=== PATIENT | female | born 1970 | race Caucasian/White ===

== ENCOUNTER 2021-04-21 22:11 | Inpatient (IN) | payer MEDICARE, OTHER ==
[~2021-04-21] VITALS: Ht 165.1 cm; Wt 87.5 kg
[2021-04-21 22:30] VITALS: BP 117/44
[2021-04-21] MEDS ORDERED: LAMO100T17 PO (23:06)
[2021-04-21] MEDS ORDERED: LANS30CA56 PO (23:07)
[2021-04-21] MEDS ORDERED: LEVO100T9 PO (23:08)
[2021-04-21] MEDS ORDERED: CLON1TAB12 PO (23:09)
[2021-04-21] MEDS ORDERED: CLON0.5T4 PO (23:11)
[2021-04-21] MEDS ORDERED: LITH300T PO (23:12)
[2021-04-21] MEDS ORDERED: LITH300T3 PO (23:14)
[2021-04-21] MEDS ORDERED: ACETAMINOPHEN 325 MG TABLET PO PRN (23:30)
[2021-04-21] MEDS ORDERED: HOME MED MISCELLANEOUS XX SCH (23:30)
[2021-04-21] MEDS ORDERED: LORAZEPAM 1 MG TABLET PO PRN (23:30)
[2021-04-21] MEDS ORDERED: BLOOD SUGAR DIAGNOSTIC 1 EACH STRIP IN ONE (23:45)
[2021-04-22 00:13] VITALS: BP 117/44
--- NOTE | 2021-04-22 00:15 | NUR ---
GPS/SAUSAGE CUTTER ADMISSION NOTES: RECEIVED 51 YEAR OLD FEMALE ON VOLUNTARY. PT. ORIENTED TO UNIT POLICIES, PROTOCOLS AND PROCEDURES. PT. BELONGINGS LOGGED AND LOCKED IN CABINET. SAFETY ENVIRONMENT OBSERVED AT ALL TIMES. CALL MALAVE WITHIN REACH AT ALL TIMES. NO DISTRESS OR AGITATION NOTED AT THIS TIME. MEDICAL AND PSYCH MADE AWARE OF PT. ADMISSION.
[2021-04-22] MEDS: ZOLPIDEM TARTRATE 5 MG TABLET PO PRN ×2 (00:47→21:42)
[2021-04-22] MEDS: MAG HYDROX/AL HYDROX/SIMETH 30 ML UDC PO PRN (01:12)
--- NOTE | 2021-04-22 01:12 | NUR ---
GPS RN NOTE, PATIENT HAS A COMPLAINT OF INDIGESTION AND IS REQUESTING MAALOX AT THIS TIME. PATIENT VITAL ARE STABLE. GAVE MAALOX 30MG DOSE Q4HR PRN ORDERED. WILL CONTINUE TO MONITOR THIS PATIENT.
[2021-04-22 07:39] LABS: BASOPHILS % (AUTO) 0.1 % (0.0-2.0); EOSINOPHILS % (AUTO) 0.1 % (0.0-6.0); HEMATOCRIT 38 % (33-45); HEMOGLOBIN 12.4 g/dL (11.5-14.8); LYMPHOCYTES % (AUTO) 34.3 % (20.0-44.0); MEAN CORPUSCULAR HGB CONC 33 g/dl (31.0-36.0); MEAN CORPUSCULAR VOLUME 91 fL (82-100); MONOCYTES # (AUTO) 0.5 K/uL (0.1-1.30); MONOCYTES % (AUTO) 7.7 % (2.0-12.0); NEUTROPHILS # (AUTO) 3.4 K/uL (1.8-8.9); NEUTROPHILS % (AUTO) 57.8 % (43.0-81.0); PLATELET COUNT (AUTO) 275 K/uL (150-450); WHITE BLOOD COUNT (AUTO) 5.8 K/uL (4.3-11.0)
[2021-04-22 07:57] LABS: CALCIUM, SERUM 9.5 mg/dL (8.5-10.1); CREATININE 0.7 mg/dL (0.6-1.3); POTASSIUM 4.1 mmol/L (3.5-5.1)
[2021-04-22] MEDS: LEVOTHYROXINE SODIUM 100 MCG TABLET PO SCH (07:59)
[2021-04-22 08:00] VITALS: BP 123/74
[2021-04-22] MEDS: FAMOTIDINE (20 MG) 20 MG TABLET PO SCH (08:09)
[2021-04-22] MEDS ORDERED: clonazePAM 0.5 MG TABLET PO PRN (11:00)
[2021-04-22] MEDS: ARIPIPRAZOLE 5 MG TABLET PO SCH (11:43)
[2021-04-22] MEDS: LamoTRIgine 100 MG TABLET PO SCH ×2 (11:43→21:24)
[2021-04-22 12:40] LABS: THYROID STIMULATING HORMONE 3.168 uIU/mL (0.358-3.74)
--- NOTE | 2021-04-22 12:45 | NUR ---
Social Work Note/Substance Abuse Intervention: Patient was provided with a brief substance abuse intervention and referred to [facility] ([phone]), [facility] ([phone]), and [facility] ([phone]) for drinking occasionally.
--- NOTE | 2021-04-22 12:56 | NUR ---
YOLIE Initial Discharge Plan: Patient currently resides at home alone located at [address] [place] [address] and would want to go back home upon discharge. YOLIE will work with the MD and treatment team to coordinate discharge.
[2021-04-22] MEDS: DIVALPROEX SODIUM 250 MG TABLET.DR PO SCH ×2 (13:38→17:00)
--- NOTE | 2021-04-22 14:25 | NUR ---
YOLIE Family Contact: SW contacted pt's adopted brother Rex ([phone]) and gathered collateral. Rex stated that pt was living in and was diagnosed with Bipolar discharged and was seeing Dr. Mosher in [facility]. However, brother reported that pt moved to a year ago and isolated herself from family and was impulsive. Brother stated she was buying expensive items and was unable to pay for it. Brother reported that pt is having issues with finances. Brother reported that pt found a new psychiatrist on yelp and that psychiatrist took her off her medications and she decompensated. SW discussed treatment and discharge plan.
[2021-04-22 16:00] VITALS: BP 111/65
[2021-04-22 16:50] LABS: BILIRUBIN,URINE NEGATIVE (NEGATIVE); COLOR,URINE YELLOW (YELLOW); LEUKOCYTE ESTERASE ,URINE SMALL (NEGATIVE); NITRITE, URINE POSITIVE (NEGATIVE); PH,URINE 6.5 (5.0-8.0); PROTEIN,URINE NEGATIVE (NEGATIVE); UGLUCOSE NEGATIVE (NEGATIVE); UROBILINOGEN,URINE 0.2 EU/dL (0.2)
[2021-04-22] MEDS ORDERED: LamoTRIgine 100 MG TABLET PO SCH (18:00)
--- NOTE | 2021-04-22 18:30 | NUR ---
RN NOTE: TERRELL ORTIZ NOTIFIED OF UA RESULTS
[2021-04-22 18:42] LABS: BACTERIA,URINE 4+ /HPF (None Seen); RBC,URINE 0-2 /HPF (0-2); SQUAMOUS EPITHELIAL CELL,UR Few /HPF (None Seen); WBC,URINE 21-50 /HPF (0-3)
[2021-04-22 20:00] VITALS: BP 150/69
--- NOTE | 2021-04-22 21:43 | NUR ---
GPS RN NOTES: Patient requested for sleep med. Ambien 5mg given PO at 2142. Will continue to monitor.
[2021-04-23] MEDS: LEVOTHYROXINE SODIUM 100 MCG TABLET PO SCH (06:03)
[2021-04-23 08:00] VITALS: BP 128/69
[2021-04-23] MEDS: LamoTRIgine 100 MG TABLET PO SCH ×2 (08:14→21:38)
[2021-04-23] MEDS: DIVALPROEX SODIUM 250 MG TABLET.DR PO SCH ×3 (08:14→17:18)
[2021-04-23] MEDS: ARIPIPRAZOLE 5 MG TABLET PO SCH (08:14)
[2021-04-23] MEDS: FAMOTIDINE (20 MG) 20 MG TABLET PO SCH (08:14)
[2021-04-23] MEDS: CEPHALEXIN MONOHYDRATE 500 MG CAPSULE PO SCH ×3 (14:34→23:21)
[2021-04-23 16:00] VITALS: BP 136/92
[2021-04-23 20:00] VITALS: BP 126/72
[2021-04-23] MEDS: ZOLPIDEM TARTRATE 5 MG TABLET PO PRN (21:41)
[2021-04-24] MEDS: LEVOTHYROXINE SODIUM 100 MCG TABLET PO SCH (06:14)
[2021-04-24] MEDS: CEPHALEXIN MONOHYDRATE 500 MG CAPSULE PO SCH ×4 (06:14→23:37)
--- NOTE | 2021-04-24 07:52 | NUR ---
PT'S BLACK OVER THE EAR HEADPHONES PLACED IN LOCKER ALONG WITH HER OTHER BELONGINGS.
[2021-04-24] MEDS: ARIPIPRAZOLE 5 MG TABLET PO SCH (08:36)
[2021-04-24] MEDS: DIVALPROEX SODIUM 250 MG TABLET.DR PO SCH ×3 (08:36→17:03)
[2021-04-24] MEDS: LamoTRIgine 100 MG TABLET PO SCH ×2 (08:36→21:01)
[2021-04-24] MEDS: FAMOTIDINE (20 MG) 20 MG TABLET PO SCH (08:36)
[2021-04-24] MEDS ORDERED: ARIPIPRAZOLE 5 MG TABLET PO ONE (09:30)
--- NOTE | 2021-04-24 09:39 | NUR ---
YOLIE Individual Therapy: SW met with patient multiple times to discuss her presenting problem. Patient appears anxious about being at the hospital. YOLIE educated pt that she is at a mental health unit and the hospital has to take precaution. SW actively listened and provided emotional support.
[2021-04-24 10:18] VITALS: BP 137/72
--- NOTE | 2021-04-24 18:13 | NUR ---
PT ANXIOUS WITH FREQUENT REQUESTS. PT REQUESTED RAPID COVID TEST FELT SCRATCHY THROAT. TEST DONE. RESULTED NEGATIVE. PT AMBULATORY. ABLE TO MAKE NEEDS KNOWN. MEDICATION COMPLIANT. NO BEHAVIORAL ISSUES T/O SHIFT.
[2021-04-24 20:35] VITALS: BP 125/85
--- NOTE | 2021-04-24 21:53 | NUR ---
RN NOTE: ANXIETY PATIENT VERBALIZED FEELING ANXIOUS & MANIC, PATIENT WANTED TO TAKE MEDICINE TO CALM HER DOWN. PRN KLONOPIN 0.5 MG PO ADMINISTERED. WILL CONTINUE TO MONITOR.
[2021-04-24] MEDS: MAGNESIUM HYDROXIDE 30 ML UDC PO PRN (21:59)
--- NOTE | 2021-04-24 22:01 | NUR ---
RN NOTE: C/O CONSTIPATION PATIENT C/O CONSTIPATION & STATED SHE HAD LAST BM ON 04/21/21 & REQUESTED TO TAKE MEDICINE. PRN MILK OF MAGNESIA PRN ADMINISTERED ORDERED.
[2021-04-24] MEDS: ZOLPIDEM TARTRATE 5 MG TABLET PO PRN (23:41)
--- NOTE | 2021-04-24 23:42 | NUR ---
RN NOTE: INSOMNIA PATIENT VERBALIZED INABILITY TO SLEEP & WANTED TO TAKE SLEEPING MEDICINE RIGHT NOW. PRN AMBARIEN 5 NG PO ADMINISTERED. WILL CONTINUE TO MONITOR.
[2021-04-25] MEDS: CEPHALEXIN MONOHYDRATE 500 MG CAPSULE PO SCH ×3 (06:29→18:01)
[2021-04-25] MEDS: LEVOTHYROXINE SODIUM 100 MCG TABLET PO SCH (06:34)
[2021-04-25 08:00] VITALS: BP 108/64
[2021-04-25] MEDS: FAMOTIDINE (20 MG) 20 MG TABLET PO SCH (08:31)
[2021-04-25] MEDS: DIVALPROEX SODIUM 250 MG TABLET.DR PO SCH ×3 (08:32→18:01)
[2021-04-25] MEDS: ARIPIPRAZOLE 5 MG TABLET PO SCH (08:32)
[2021-04-25] MEDS: LamoTRIgine 100 MG TABLET PO SCH ×2 (08:32→21:11)
--- NOTE | 2021-04-25 08:34 | NUR ---
GPS/RN PT WAS PROVIDED RIGHTS FOR INDIVIDUALS IN MENTAL HEALTH FACILITIES HANDBOOK BY HER REQUEST.
[2021-04-25] MEDS: MAG HYDROX/AL HYDROX/SIMETH 30 ML UDC PO PRN ×2 (11:10→22:19)
[2021-04-25 16:00] VITALS: BP 117/74
[2021-04-25 19:49] VITALS: BP 139/86
[2021-04-25 19:58] VITALS: BP 139/86
[2021-04-25] MEDS: PANTOPRAZOLE 40 MG TABLET.DR PO SCH (21:11)
[2021-04-25] MEDS ORDERED: TRAZODONE 50 MG TABLET PO SCH (22:00)
[2021-04-25] MEDS: TRAZODONE 50 MG TABLET PO SCH (22:06)
[2021-04-26] MEDS: CEPHALEXIN MONOHYDRATE 500 MG CAPSULE PO SCH ×5 (00:02→23:39)
[2021-04-26] MEDS: LEVOTHYROXINE SODIUM 100 MCG TABLET PO SCH (06:20)
[2021-04-26] MEDS: DIVALPROEX SODIUM 250 MG TABLET.DR PO SCH ×3 (07:48→21:18)
[2021-04-26] MEDS: ARIPIPRAZOLE 5 MG TABLET PO SCH (07:48)
[2021-04-26] MEDS: PANTOPRAZOLE 40 MG TABLET.DR PO SCH ×2 (07:48→21:20)
[2021-04-26] MEDS: LamoTRIgine 100 MG TABLET PO SCH ×2 (07:48→21:18)
[2021-04-26 08:00] VITALS: BP 106/62
[2021-04-26 16:00] VITALS: BP 130/93
[2021-04-26 19:43] VITALS: BP 132/58
[2021-04-26] MEDS: TRAZODONE 50 MG TABLET PO SCH (21:19)
[2021-04-27] MEDS: ZOLPIDEM TARTRATE 5 MG TABLET PO PRN (01:06)
--- NOTE | 2021-04-27 01:06 | NUR ---
Pt woke up and c/o insomnia. Least restrictive measures ineffective. Ambien 5 mg 1 tab po prn given as ordered. Will continue to monitor.
--- NOTE | 2021-04-27 02:13 | NUR ---
Post 1 hr Ambien effective. Pt asleep in bed easy to arouse. Frequent visual check done for safety. Will continue to monitor.
[2021-04-27] MEDS: LEVOTHYROXINE SODIUM 100 MCG TABLET PO SCH (06:26)
[2021-04-27] MEDS: CEPHALEXIN MONOHYDRATE 500 MG CAPSULE PO SCH ×3 (06:26→18:01)
[2021-04-27] MEDS: MAG HYDROX/AL HYDROX/SIMETH 30 ML UDC PO PRN (07:04)
--- NOTE | 2021-04-27 07:05 | NUR ---
Pt c/o indigestion. Maalox po prn given as ordered. Will continue to monitor. Will endorse to next shift
[2021-04-27 08:00] VITALS: BP 114/75
[2021-04-27] MEDS: ARIPIPRAZOLE 5 MG TABLET PO SCH (08:28)
[2021-04-27] MEDS: LamoTRIgine 100 MG TABLET PO SCH ×2 (08:28→21:41)
[2021-04-27] MEDS: PANTOPRAZOLE 40 MG TABLET.DR PO SCH ×2 (08:28→21:41)
[2021-04-27] MEDS: DIVALPROEX SODIUM 250 MG TABLET.DR PO SCH ×2 (08:29→21:41)
--- NOTE | 2021-04-27 13:43 | NUR ---
YOLIE Individual Therapy: SW met with patient to discuss patient's presenting problem. Patient appears manic and anxious. Patient appears tearful and is frustrated with being at the hospital. SW explained patient's treatment plan. Pt was not understanding and was wanting her cellphone to talk to her friends. SW provided patient activities to do gratitude journal and goals for the week.
--- NOTE | 2021-04-27 14:31 | NUR ---
YOLIE Note: YOLIE assisted pt to pay her bills through her cellphone. SW was present while pt had her cellphone and pt did not end up paying her bill on the phone or transfer money to her brother. Pt was fixated on texting her friends on the phone or responding to her psychiatrist on the phone. Pt began to cry and threw a tantrum. YOLIE and ISHAN Piña helped and educated pt that she cannot text her friends on the phone. YOLIE helped pt gather her friends number and she will be allowed to use the unit phone. YOLIE helped provide her psychiatrist number from phone. YOLIE and ISHAN Piña stated she can give psychiatrist number to the unit and he can call.
[2021-04-27 16:00] VITALS: BP 131/63
[2021-04-27 20:00] VITALS: BP 140/84
[2021-04-27] MEDS: TRAZODONE 50 MG TABLET PO SCH (21:41)
[2021-04-28] MEDS: CEPHALEXIN MONOHYDRATE 500 MG CAPSULE PO SCH ×3 (01:00→11:53)
[2021-04-28] MEDS: MAG HYDROX/AL HYDROX/SIMETH 30 ML UDC PO PRN (01:25)
--- NOTE | 2021-04-28 01:30 | NUR ---
GPS RN NOTES: PATIENT C/O INDIGESTION. MAALOX 30ML/1CUP GIVEN PO @ 0125. WILL CONTINUE TO MONITOR.
[2021-04-28] MEDS: LEVOTHYROXINE SODIUM 100 MCG TABLET PO SCH (06:10)
[2021-04-28 08:00] VITALS: BP 141/68
[2021-04-28] MEDS: LamoTRIgine 100 MG TABLET PO SCH ×2 (08:46→20:44)
[2021-04-28] MEDS: PANTOPRAZOLE 40 MG TABLET.DR PO SCH ×2 (08:46→20:44)
[2021-04-28] MEDS: DIVALPROEX SODIUM 250 MG TABLET.DR PO SCH ×2 (08:46→20:44)
[2021-04-28] MEDS: ARIPIPRAZOLE 5 MG TABLET PO SCH (08:46)
[2021-04-28] MEDS: LORAZEPAM 1 MG TABLET PO PRN ×2 (11:52→23:09)
--- NOTE | 2021-04-28 11:52 | NUR ---
PT APPEARS ANXIOUS AND COMPLAINS OF FEELING ANXIOUS. ATIVAN 1MG GIVEN. WILL CONTINUE TO MONITOR.
--- NOTE | 2021-04-28 12:45 | NUR ---
YOLIE Note: Patient throwing a tantrum and crying and wanting to be discharged. YOLIE and ISHAN Piña explained that pt will be discharged AMA. Pt wants to be discharged AMA.
--- NOTE | 2021-04-28 12:47 | NUR ---
Discharge Note: Patient is leaving AMA. Patient will be discharged back home located at [address] [facility] [facility] [address], [place] [address]; ([phone]). Patient will provide her own transportation. Patients adopted brother Rex ([phone]) is aware and agreeable. Patient appears to be alert and oriented x4. Patient denies suicidal or homicidal ideation. Patient denies visual/auditory hallucinations. Patient will follow up with (Esthetician/Spa Coordinator) Dr. Chester Vergara ([phone]) located at [facility] [address] [place] [address] [address], [place], [place] [address] and (psychiatrist) Dr. Bejarano located at [address] [address]; ([phone]). Addendum: 04/29/21 at 1028 by YOLIE GIL Discharge canceled. Dr. Baptiste notified pt was manic and verbally/physically aggressive. Crisis team was called.
--- NOTE | 2021-04-28 13:00 | NUR ---
PER DR LEIGH, PT'S PHARMACY [facility] [address] [place] [address] [phone] CONTA[address]ED. PRESCRIPTION FOR DEPAKOTE DR 500MG Q12 PO X 2 WEEKS, LAMICTAL 100MG Q12 PO X2 WEEKS, DESYREL 50MG POHS X 2 WEEKS, ABILIFY 15MG PO DAILY X 2 WEEKS, PLACED WITH PHARMACIST MARCELINA.
--- NOTE | 2021-04-28 14:33 | NUR ---
YOLIE Family Contact: YOLIE contacted pt's adopted brother Rex ([phone]) and notified that patient wanted to leave AMA. Brother stated that patient has a hard time with accepting her mental illness and letting go of her cellphone. YOLIE explained patient's status and her follow ups for treatment.
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
[2021-04-28 16:00] VITALS: BP 145/69
--- NOTE | 2021-04-28 17:40 | NUR ---
PT PLACED ON A 5150 HOLD BY CRISIS ELECTRICAL ELECTRONICS TECHNICIAN JUVENAL HAILE BEGINNING ON 04/28/2021 @ 1617 PER HOLD: PRESENTING DANGER TO OTHERS AND GRAVELY DISABLED. DR LUGO NOTIFIED. DR LEIGH CONTACTED, MESSAGE LEFT. APPLE WATCH RETRIEVED FROM PATIENT, LISTED ON BELONGINGS LIST AND TAKEN TO SAFE BY DRESSMAKER GARMENT FITTER. PT IS CALM AND REDIRECTABLE AT THIS TIME. REMAINS MED COMPLIANT AND COMPLIANT WITH CARE. WILL CONTINUE TO MONITOR.
[2021-04-28 20:00] VITALS: BP 131/67
[2021-04-28] MEDS: TRAZODONE 50 MG TABLET PO SCH (21:05)
--- NOTE | 2021-04-28 23:12 | NUR ---
GPS RN NOTES: PATIENT IS ANXIOUS, RESTLESS AND GETTING AGITATED. ATIVAN 1MG GIVEN PO AT 2309. WILL CONTINUE TO MONITOR.
[2021-04-29] MEDS: LEVOTHYROXINE SODIUM 100 MCG TABLET PO SCH (06:47)
[2021-04-29 08:00] VITALS: BP 107/59
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
[2021-04-29] MEDS ORDERED: OLANZAPINE 10 MG VIAL IM STA (08:38)
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
[2021-04-29] MEDS ORDERED: ARIPIPRAZOLE 5 MG TABLET PO SCH (09:00)
--- NOTE | 2021-04-29 09:24 | NUR ---
YOLIE Family Contact: SW contacted pt's adopted brother Rex ([phone]) and notified of pt's 3020 hold and he was agreeable with this.
[2021-04-29] MEDS: LamoTRIgine 100 MG TABLET PO SCH ×2 (09:39→21:48)
[2021-04-29] MEDS: DIVALPROEX SODIUM 250 MG TABLET.DR PO SCH (09:39)
[2021-04-29] MEDS: PANTOPRAZOLE 40 MG TABLET.DR PO SCH ×2 (09:40→21:48)
--- NOTE | 2021-04-29 11:27 | NUR ---
RN-CO: PT REMAINS AWAKE, WALKING IN AND OUT FROM HER ROOM. DENIED PAIN AND DISCOMFORTS.
[2021-04-29] MEDS: LORAZEPAM 1 MG TABLET PO PRN ×2 (12:12→20:17)
[2021-04-29] MEDS: LITHIUM CARBONATE (300 MG CAP) 300 MG CAPSULE PO SCH ×2 (12:12→21:49)
[2021-04-29 16:00] VITALS: BP 136/78
[2021-04-29 20:00] VITALS: BP 112/73
--- NOTE | 2021-04-29 20:18 | NUR ---
Pt c/o anxiety. Restless and pacing around in room and hallway. Least restrictive measures ineffective. Ativan 1 mg po prn given as ordered. Will continue to monitor.
[2021-04-29] MEDS: OLANZAPINE 5 MG TABLET PO SCH (21:47)
[2021-04-29] MEDS: TRAZODONE 50 MG TABLET PO SCH (21:48)
[2021-04-30] MEDS: LEVOTHYROXINE SODIUM 100 MCG TABLET PO SCH (06:35)
[2021-04-30 08:00] VITALS: BP 108/66
[2021-04-30] MEDS: LITHIUM CARBONATE (300 MG CAP) 300 MG CAPSULE PO SCH ×2 (08:26→21:27)
[2021-04-30] MEDS: PANTOPRAZOLE 40 MG TABLET.DR PO SCH ×2 (08:26→21:27)
[2021-04-30] MEDS: LamoTRIgine 100 MG TABLET PO SCH ×2 (08:26→21:27)
[2021-04-30] MEDS: OLANZAPINE 5 MG TABLET PO SCH ×2 (08:27→21:27)
--- NOTE | 2021-04-30 12:26 | NUR ---
Pt. is barricading the door on her room, agitated, screaming and slamming the door when staff opened the door. Dr. Baptiste notified and ordered Zyprexa 10 mg IM.
[2021-04-30] MEDS ORDERED: OLANZAPINE 10 MG VIAL IM ONE (12:30)
[2021-04-30 16:00] VITALS: BP 130/89
[2021-04-30 20:00] VITALS: BP 118/71
[2021-04-30] MEDS: TRAZODONE 50 MG TABLET PO SCH (21:27)
[2021-05-01 08:00] VITALS: BP 113/76
[2021-05-01] MEDS: LEVOTHYROXINE SODIUM 100 MCG TABLET PO SCH (08:09)
[2021-05-01] MEDS: PANTOPRAZOLE 40 MG TABLET.DR PO SCH ×2 (08:10→21:08)
[2021-05-01] MEDS: LITHIUM CARBONATE (300 MG CAP) 300 MG CAPSULE PO SCH ×2 (08:10→21:08)
[2021-05-01] MEDS: OLANZAPINE 5 MG TABLET PO SCH ×2 (08:11→17:06)
[2021-05-01] MEDS: LamoTRIgine 100 MG TABLET PO SCH ×2 (08:12→21:08)
--- NOTE | 2021-05-01 15:42 | NUR ---
YOLIE Family Contact: SW spoke with pt's adopted brother Rex ([phone]) who stated that he transferred money to pt's landlord for her rent.
--- NOTE | 2021-05-01 15:44 | NUR ---
YOLIE Note: YOLIE notified pt that her brother Rex has made the transfer to pay for her rent.
[2021-05-01 16:00] VITALS: BP 147/82
[2021-05-01 20:00] VITALS: BP 146/91
[2021-05-01 21:00] VITALS: BP 129/78
[2021-05-01] MEDS: TRAZODONE 50 MG TABLET PO SCH (21:08)
[2021-05-01] MEDS ORDERED: OLANZAPINE 5 MG TABLET PO SCH (22:00)
[2021-05-01] MEDS: LORAZEPAM 1 MG TABLET PO PRN (23:58)
--- NOTE | 2021-05-02 | NUR ---
RN NOTES: ANXIETY PATIENT C/O FEELING ANXIOUS & MANIC,PARANOID PATIENT WANTED TO TAKE MEDICINE TO CALM HER DOWN. PRN ATIVAN 1 MG PO ADMINISTERED.ATIVAN1 MG PO PRN GIVEN PER PT. REQUEST WILL CONTINUE TO MONITOR.
[2021-05-02] MEDS: LEVOTHYROXINE SODIUM 100 MCG TABLET PO SCH (07:06)
[2021-05-02 08:00] VITALS: BP 130/78
[2021-05-02] MEDS: OLANZAPINE 5 MG TABLET PO SCH ×2 (09:00→18:02)
[2021-05-02] MEDS: LITHIUM CARBONATE (300 MG CAP) 300 MG CAPSULE PO SCH ×2 (09:00→21:48)
[2021-05-02] MEDS: PANTOPRAZOLE 40 MG TABLET.DR PO SCH ×2 (09:00→21:47)
[2021-05-02] MEDS: LamoTRIgine 100 MG TABLET PO SCH ×2 (09:00→21:48)
[2021-05-02] MEDS ORDERED: HALOPERIDOL LACTATE INJ 5 MG/ML VIAL IM ONE (09:30)
[2021-05-02] MEDS ORDERED: diphenhydrAMINE HCL 50 MG/ML VIAL IM PRN (10:00)
[2021-05-02] MEDS ORDERED: LORAZEPAM INJ 2 MG/ML VIAL IM PRN (10:00)
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
[2021-05-02 16:00] VITALS: BP 103/70
--- NOTE | 2021-05-02 18:42 | NUR ---
resting comfortably in rm.
--- NOTE | 2021-05-02 19:30 | NUR ---
GPS RN NOTE, RECEIVED PATIENT AWAKE AND IN BED, NO S/S OR COMPLAINTS OF PAIN AT THIS TIME. PATIENT IS DISPLAYING NO S/S OF APPARENT DISTRESS AT THIS TIME. PATIENT BREATHING IS UNLABORED WITH EQUAL RISE AND FALL OF THE CHEST. PATIENT IS ALERT AND ORIENTED X 3 ON ROOM AIR WITH A SPO2 97%. PATIENT IS COMPLIANT WITH MEDICATIONS, ANXIOUS AT TIMES, AND UNCOOPERATIVE. PATIENT DENIES SUICIDAL AND HOMICIDAL IDEATIONS AT THIS TIME. PATIENT ASSISTED WITH TURNING AND REPOSITIONING Q2HR AND PRN FOR COMFORT AND CIRCULATION. PATIENT HAS NO NEEDS AT THIS TIME. PATIENT EDUCATED ON THE USE OF THE CALL MALAVE. PATIENT BED SIDE RAILS UP X 2 FOR SAFETY. PATIENT BED IS LOCKED, LOW, WITH BED ALARM ON. WILL CONTINUE TO MONITOR THIS PATIENT Q15 MINUTES WITH THE HELP OF STAFF TO MAINTAIN SAFETY.
[2021-05-02 20:12] VITALS: BP 124/72
[2021-05-02] MEDS ORDERED: OLANZAPINE 5 MG TABLET PO SCH (22:00)
[2021-05-03 08:00] VITALS: BP 117/52
[2021-05-03] MEDS: LEVOTHYROXINE SODIUM 100 MCG TABLET PO SCH (08:07)
[2021-05-03] MEDS: LITHIUM CARBONATE (300 MG CAP) 300 MG CAPSULE PO SCH ×2 (08:07→21:17)
[2021-05-03] MEDS: LORAZEPAM 1 MG TABLET PO PRN ×2 (08:07→16:53)
--- NOTE | 2021-05-03 08:07 | NUR ---
RN-CO: ATIVAN GIVEN FOR RESTLESSNESS.
[2021-05-03] MEDS: PANTOPRAZOLE 40 MG TABLET.DR PO SCH ×2 (08:10→21:16)
[2021-05-03] MEDS: OLANZAPINE 5 MG TABLET PO SCH ×3 (08:11→21:19)
[2021-05-03] MEDS: LamoTRIgine 100 MG TABLET PO SCH ×2 (08:42→21:16)
[2021-05-03 16:00] VITALS: BP 112/72
--- NOTE | 2021-05-03 19:54 | NUR ---
Patient currently resting in bed. Rise and fall of chest visualized. No signs of distress. Will continue to monitor.
[2021-05-03 20:00] VITALS: BP 136/76
--- NOTE | 2021-05-03 23:21 | NUR ---
patient reports having hallucination that morning nurse was at bedside telling her that she had slept for days straight.
[2021-05-03] MEDS: ZOLPIDEM TARTRATE 5 MG TABLET PO PRN (23:30)
[2021-05-04 06:57] LABS: BASOPHILS % (AUTO) 0.1 % (0.0-2.0); EOSINOPHILS % (AUTO) 0.2 % (0.0-6.0); HEMATOCRIT 38 % (33-45); HEMOGLOBIN 12.4 g/dL (11.5-14.8); LYMPHOCYTES # (AUTO) 1.5 K/uL (0.8-4.8); LYMPHOCYTES % (AUTO) 34.7 % (20.0-44.0); MEAN CORPUSCULAR HGB CONC 33 g/dl (31.0-36.0); MEAN CORPUSCULAR VOLUME 91 fL (82-100); MONOCYTES # (AUTO) 0.4 K/uL (0.1-1.30); MONOCYTES % (AUTO) 9.1 % (2.0-12.0); NEUTROPHILS # (AUTO) 2.5 K/uL (1.8-8.9); NEUTROPHILS % (AUTO) 55.9 % (43.0-81.0); PLATELET COUNT (AUTO) 213 K/uL (150-450); RED BLOOD CELL COUNT(AUTO) 4.15 MIL/uL (4.0-5.2); WHITE BLOOD COUNT (AUTO) 4.5 K/uL (4.3-11.0)
[2021-05-04] MEDS: LEVOTHYROXINE SODIUM 100 MCG TABLET PO SCH (06:57)
[2021-05-04 07:43] LABS: ALBUMIN 3.3 g/dL (3.4-5.0); BILIRUBIN,TOTAL 0.2 mg/dL (0.2-1.0); CALCIUM, SERUM 9.5 mg/dL (8.5-10.1); CREATININE 0.9 mg/dL (0.6-1.3); POTASSIUM 4.1 mmol/L (3.5-5.1); TOTAL PROTEIN, SERUM 6.6 g/dL (6.4-8.2)
[2021-05-04 08:00] VITALS: BP 103/64
[2021-05-04] MEDS: PANTOPRAZOLE 40 MG TABLET.DR PO SCH ×2 (08:18→21:48)
[2021-05-04] MEDS: LITHIUM CARBONATE (300 MG CAP) 300 MG CAPSULE PO SCH ×2 (08:18→21:48)
[2021-05-04] MEDS: LamoTRIgine 100 MG TABLET PO SCH ×2 (08:18→21:48)
[2021-05-04] MEDS: OLANZAPINE 5 MG TABLET PO SCH ×3 (08:18→22:20)
[2021-05-04] MEDS: LORAZEPAM 1 MG TABLET PO PRN (14:52)
--- NOTE | 2021-05-04 14:53 | NUR ---
RN note: ATIVAN GIVEN FOR RESTLESSNESS.
[2021-05-04 16:00] VITALS: BP 126/69
[2021-05-04 20:28] VITALS: BP 110/70
[2021-05-05] MEDS: LEVOTHYROXINE SODIUM 100 MCG TABLET PO SCH (07:08)
[2021-05-05 08:00] VITALS: BP 115/77
[2021-05-05] MEDS: OLANZAPINE 5 MG TABLET PO SCH ×3 (08:39→21:19)
[2021-05-05] MEDS: LamoTRIgine 100 MG TABLET PO SCH ×2 (08:39→20:51)
[2021-05-05] MEDS: LITHIUM CARBONATE (300 MG CAP) 300 MG CAPSULE PO SCH ×2 (08:39→20:51)
[2021-05-05] MEDS: PANTOPRAZOLE 40 MG TABLET.DR PO SCH ×2 (08:39→20:51)
--- NOTE | 2021-05-05 09:00 | NUR ---
RN NOTE- RECEIVED PATIENT IN THE ROOM RESTING IN BED NO S/S DISTRESS NOTED PATIENT DENIES SI/HI, COMPLIANT WITH MEDICATIONS A/O X3 AMBULATORY SELF CARE WILL CONTINUE MONITORING FOR SAFETY AND BEHAVIOR Q 15 MIN.
[2021-05-05 16:00] VITALS: BP 113/90
[2021-05-05] MEDS: LORAZEPAM 1 MG TABLET PO PRN (19:35)
--- NOTE | 2021-05-05 19:37 | NUR ---
RN NOTE: ANXIETY PATIENT VERBALIZED FEELING VERY ANXIOUS AND RESTLESS AND REQUESTED TO TAKE MEDICINE. PRN ATIVAN 1 MG PO ADMINISTERED.
[2021-05-05 20:00] VITALS: BP 125/70
--- NOTE | 2021-05-05 22:35 | NUR ---
RN NOTE: PAIN PATIENT C/O LOWER BACK PAIN 10/01 AND REQUESTED TO TAKE TYLENOL. PRN TYLENOL 650 MG PO ADMINISTERED.
[2021-05-06] MEDS: LEVOTHYROXINE SODIUM 100 MCG TABLET PO SCH (07:50)
[2021-05-06 08:00] VITALS: BP 127/72
[2021-05-06] MEDS: PANTOPRAZOLE 40 MG TABLET.DR PO SCH ×2 (08:20→21:43)
[2021-05-06] MEDS: OLANZAPINE 5 MG TABLET PO SCH ×3 (08:20→21:43)
[2021-05-06] MEDS: LamoTRIgine 100 MG TABLET PO SCH ×2 (08:20→21:43)
[2021-05-06] MEDS: LITHIUM CARBONATE (300 MG CAP) 300 MG CAPSULE PO SCH ×2 (08:20→21:43)
[2021-05-06] MEDS: MAGNESIUM HYDROXIDE 30 ML UDC PO PRN (08:57)
[2021-05-06] MEDS: DOCUSATE SODIUM 100 MG CAPSULE PO SCH ×2 (11:50→16:35)
[2021-05-06] MEDS: POLYETHYLENE GLYCOL 3350 17 GM POWD.PACK PO SCH ×2 (11:50→21:43)
--- NOTE | 2021-05-06 15:03 | NUR ---
Court Hearing: Patient's court hearing for 3080 was today and it was upheld for GD.
[2021-05-06 16:00] VITALS: BP 111/69
[2021-05-06 20:00] VITALS: BP 132/78
[2021-05-06] MEDS: ZOLPIDEM TARTRATE 5 MG TABLET PO PRN (21:45)
[2021-05-07] MEDS: LORAZEPAM 1 MG TABLET PO PRN ×2 (00:25→19:52)
[2021-05-07 08:00] VITALS: BP 108/68
[2021-05-07] MEDS: LamoTRIgine 100 MG TABLET PO SCH ×2 (08:02→21:06)
[2021-05-07] MEDS: LITHIUM CARBONATE (300 MG CAP) 300 MG CAPSULE PO SCH ×2 (08:03→21:06)
[2021-05-07] MEDS: DOCUSATE SODIUM 100 MG CAPSULE PO SCH ×2 (08:03→17:12)
[2021-05-07] MEDS: PANTOPRAZOLE 40 MG TABLET.DR PO SCH ×2 (08:03→21:06)
[2021-05-07] MEDS: LEVOTHYROXINE SODIUM 100 MCG TABLET PO SCH (08:03)
[2021-05-07] MEDS: OLANZAPINE 5 MG TABLET PO SCH ×2 (08:04→21:06)
--- NOTE | 2021-05-07 13:06 | NUR ---
YOLIE Coordination of Care: YOLIE spoke with doctor Roshan who stated that he has seen patient once for screening and stated she is not the appropriate fit but will screen patient second time. He stated patient would have to call to make the appointment for the screening ([phone]).
[2021-05-07 16:00] VITALS: BP 114/74
--- NOTE | 2021-05-07 19:54 | NUR ---
GPS-RN NOTES: PATIENT IS ANXIOUS AND RESTLESS. PRN ATIVAN 1MG PO GIVEN ORDERED. WILL CONTINUE TO MONITOR PATIENT'S SAFETY.
[2021-05-07 20:00] VITALS: BP 137/66
[2021-05-07] MEDS: POLYETHYLENE GLYCOL 3350 17 GM POWD.PACK PO SCH (21:07)
[2021-05-07] MEDS: ZOLPIDEM TARTRATE 5 MG TABLET PO PRN (22:19)
--- NOTE | 2021-05-07 22:20 | NUR ---
GPS-RN NOTES: INSOMNIA PATIENT C/O INABILITY TO SLEEP. PRN AMBIEN 5MG PO ORDERED. WILL CONTINUE TO MONITOR.
--- NOTE | 2021-05-08 08:00 | NUR ---
Dr. Baptiste gave an order to D/C hold and D/C home and to follow up with psych and medical doctors. Dr. Baptiste provided a prescriptions for the pt. upon discharge.
--- NOTE | 2021-05-08 08:13 | NUR ---
SW Discharge Note: Patient will be discharged back home located at [address] [facility] [address], [place] [address]; ([phone]). Please arrange taxi transportation to [facility] [address] [place] [address] at 9AM. Patient will be provided with [email or web address] Ticket (RESERVATION NUMBER) back to [facility] at 10:40AM and lands 12:33PM.Patients adopted brother Rex ([phone]) is aware and agreeable. Patient appears to be alert and oriented x4. Patient denies suicidal or homicidal ideation. Patient denies visual/auditory hallucinations. Patient will follow up with (Slot Machine Mechanic) Dr. Chester Vergara ([phone]) located at [facility] [address] [place] [address] [address], [place], [place] [address] and (psychiatrist) Dr. Bejarano located at [address] [place] [id number]; ([phone]). Patient would have to call doctor Bejarano on his cellphone ([phone]) to coordinate a screening intake. Patient presents with euthymic mood and congruent affect.
[2021-05-08] MEDS: LEVOTHYROXINE SODIUM 100 MCG TABLET PO SCH (08:24)
[2021-05-08] MEDS: PANTOPRAZOLE 40 MG TABLET.DR PO SCH (08:24)
[2021-05-08] MEDS: DOCUSATE SODIUM 100 MG CAPSULE PO SCH (08:24)
[2021-05-08] MEDS: OLANZAPINE 5 MG TABLET PO SCH (08:24)
[2021-05-08] MEDS: LamoTRIgine 100 MG TABLET PO SCH (08:24)
[2021-05-08] MEDS: LITHIUM CARBONATE (300 MG CAP) 300 MG CAPSULE PO SCH (08:24)
--- NOTE | 2021-05-08 08:58 | NUR ---
GPS RN NOTE: PATIENT DISCHARGE HOME TO [place] VIA TAXI TO [facility] PT PROVIDED WITH TICKET BACK TO [place]. KAYLEE Addendum: 05/08/21 at 0906 by NAIF RODRIGUEZ RN PATIENT IN STABLE CONDITION , NO S/S DISTRESS NOTED, SELF CARE, VSS, PATIENT DENIES SI./HI AVH. AMBULATORY ,SEEN BY PSYCHIATRIST THIS MORNING. EXIT CARE DONE PRINTED ,SIGN , AND GIVEN TO PATIENT . EXPLAIN MEDICATION MGMT,PRESCRIPTION, ORDERS GIVEN AND EXPLAIN. ALL PATIENT BELONGINGS AND VALUABLES RETURNED TO PT.
== END 2021-05-08 08:50 | disposition home or self-care (01) | DRG 885 ==
LOC: GPS 22:11
PROVIDERS: ADMIT Psychiatry & Neurology Psychiatry; ATTEND Nurse Practitioner Acute Care
DX: F31.63 Bipolar disorder, current episode mixed, severe, without psychotic features (principal); G93.41 Metabolic encephalopathy; F23 Brief psychotic disorder; N39.0 Urinary tract infection, site not specified; E66.9 Obesity, unspecified; E03.9 Hypothyroidism, unspecified; K21.9 Gastro-esophageal reflux disease without esophagitis; F41.9 Anxiety disorder, unspecified; K59.00 Constipation, unspecified; Z85.42 Personal history of malignant neoplasm of other parts of uterus; Z90.710 Acquired absence of both cervix and uterus; Z68.32 Body mass index [BMI] 32.0-32.9, adult; B96.20 Unspecified Escherichia coli [E. coli] as the cause of diseases classified elsewhere; F60.3 Borderline personality disorder; Z20.822 Contact with and (suspected) exposure to COVID-19
CPT/HCPCS: 36415; 74018; 80048-TC; 80053-TC; 80061-TC; 80164-TC; 81001; 82962-TC; 84439-TC; 84443-TC; 84703-TC; 85025-TC; 87081-TC; 87086-TC; 87186-TC; J1200; J1630; J2060; J3490